=== PATIENT | female | born 1950 | race Caucasian/White ===

== ENCOUNTER 2020-09-13 08:00 | Outpatient (REF) | payer MEDICARE, SELFPAY ==
[2020-09-13 11:50] LABS: Alanine Aminotransferase 46 U/L (0-31); Albumin Level 4.6 g/dL (3.5-5.0); Alkaline Phosphatase 63 U/L (39-117); Anion Gap 11 (12-20); Aspartate Amino Transferase 30 U/L (5-31); Bilirubin Total 0.7 mg/dL (0.0-1.0); Blood Urea Nitrogen 13 mg/dL (9-16); Calcium 9.4 mg/dL (8.4-10.2); Carbon Dioxide 31 mmol/L (22-29); Chloride 101 mmol/L (96-108); Cholesterol 208 mg/dL; Estimated Glomerular Filt Rate > 60; Glucose Fasting 100 mg/dL (60-99); HDL Cholesterol 57 mg/dL; LDL Cholesterol Calculated 111 mg/dl; Potassium 4.1 mmol/l (3.3-5.1); Sodium 139 mmol/L (135-145); Total Protein 7.2 g/dL (6.5-8.0); Triglycerides 202 mg/dL
== END 2020-09-13 08:01 | disposition home or self-care (01) ==
LOC: HO.HMGCLDS 08:00
PROVIDERS: PCP Internal Medicine; Visit Provider Nurse Practitioner
DX: E78.5 Hyperlipidemia, unspecified (principal)
CPT/HCPCS: 36415; 80053; 80061

== ENCOUNTER 2021-06-13 12:50 | Outpatient (REF) | payer MEDICARE, SELFPAY ==
--- NOTE | ~2021-06-13 | US_ITS ---
EXAMINATION: US RETROPERITONEAL LIMITED (RENAL ONLY) CLINICAL INFORMATION: Microscopic hematuria. COMPARISON: Renal ultrasound November [address] of the abdomen and pelvis December 2014 TECHNIQUE: Real-time imaging of the kidneys. FINDINGS: RIGHT KIDNEY: 11.3 x 3.9 x 5.2 cm (SAG x AP x TRV). The kidney is normal in size, contour, and echogenicity. Renal cortical thickness is normal. There is a 2 x 2.8 x 1.6 cm cyst in the midpole. No renal calculi or hydronephrosis. LEFT KIDNEY: 10.3 x 4.2 x 5.0 cm (SAG x AP x TRV). The kidney is normal in size, contour, and echogenicity. Renal cortical thickness is normal. No calculi or focal parenchymal lesions. No hydronephrosis. US/US renal BI IMPRESSION: Right renal cyst otherwise unremarkable exam.
== END 2021-06-13 12:51 | disposition home or self-care (01) ==
LOC: HO.HMGCX 12:50
DX: R31.29 Other microscopic hematuria (principal)
CPT/HCPCS: 76775

== ENCOUNTER → 2021-06-21 08:59 | Outpatient (BNVA) | payer MEDICARE, SELFPAY | DX: N28.1 Cyst of kidney, acquired (principal) | CPT/HCPCS: 99212 ==

== ENCOUNTER 2021-10-07 08:15 | Outpatient (REF) | payer MEDICARE, SELFPAY ==
[2021-10-07 11:12] LABS: MANUAL DIFF FLAG NO
[2021-10-07 11:20] LABS: Basophils Percent Auto 0.6 % (0-2); Eosinophils Absolute Auto 0.1 X10*3/uL (0.0-0.4); Eosinophils Percent Auto 1.5 % (0-4); Hematocrit 42.2 % (37.0-47.0); Hemoglobin 13.7 g/dl (12.0-16.0); Lymphocytes Absolute Auto 1.8 X10*3/uL (1.2-4.9); Lymphocytes Percent Auto 38.3 % (20-40); Mean Corpuscular HGB Conc 32.5 g/dl (31.0-35.0); Mean Corpuscular Hemoglobin 29.8 pg (27.0-33.0); Mean Corpuscular Volume 91.7 fL (80.0-98.0); Mean Platelet Volume 10.9 fL (9.4-12.3); Monocytes Absolute Auto 0.4 X10*3/uL (0.1-1.2); Monocytes Percent Auto 7.7 % (2-11); Neutrophils Absolute Auto 2.5 x10*3/uL (2.0-8.3); Neutrophils Percent Auto 51.9 % (45-73); Platelet Count 216 X10*3/uL (160-400); Red Cell Distribution Width 12.5 % (11.0-16.0); White Blood Count 4.8 X10*3/uL (4.8-10.8)
[2021-10-07 11:46] LABS: Alanine Aminotransferase 49 U/L (0-31); Albumin Level 4.3 g/dL (3.5-5.0); Alkaline Phosphatase 53 U/L (39-117); Anion Gap 13 (12-20); Aspartate Amino Transferase 36 U/L (5-31); Bilirubin Total 0.5 mg/dL (0.0-1.0); Blood Urea Nitrogen 17 mg/dL (9-16); Calcium 9.6 mg/dL (8.4-10.2); Carbon Dioxide 28 mmol/L (22-29); Chloride 106 mmol/L (96-108); Cholesterol 181 mg/dL; Estimated Glomerular Filt Rate > 60; Glucose Random 99 mg/dL (60-115); HDL Cholesterol 45 mg/dL; LDL Cholesterol Calculated 101 mg/dl; Sodium 143 mmol/L (135-145); Total Protein 6.9 g/dL (6.5-8.0); Triglycerides 179 mg/dL
== END 2021-10-07 08:16 | disposition home or self-care (01) ==
LOC: HO.HMGCLDS 08:15
PROVIDERS: Visit Provider Internal Medicine
DX: I10 Essential (primary) hypertension (principal); E78.5 Hyperlipidemia, unspecified
CPT/HCPCS: 36415; 80053; 80061; 85025

== ENCOUNTER → 2022-01-18 13:19 | Outpatient (RCR) | payer MEDICARE, SELFPAY | END | disposition home or self-care (01) | LOC: HO.PTCHIC 07-21 12:54 | PROVIDERS: PCP Internal Medicine; Visit Provider Internal Medicine | DX: M26.611 Adhesions and ankylosis of right temporomandibular joint (principal) | CPT/HCPCS: 97035; 97110; 97140; 97161 ==

== ENCOUNTER 2022-04-28 08:30 | Outpatient (RCR) | payer MEDICARE, SELFPAY ==
[2022-04-13 15:00] VITALS: BP 120/68; PULSE 80; O2SAT 96
== END 2022-05-29 11:55 | disposition home or self-care (01) ==
LOC: HO.PTCHIC 08:30
PROVIDERS: PCP Internal Medicine; Visit Provider Nurse Practitioner
DX: Z86.69 Personal history of other diseases of the nervous system and sense organs (principal)
CPT/HCPCS: 95992; 97110; 97112; 97162

== ENCOUNTER 2022-06-06 13:47 | Outpatient (REF) | payer MEDICARE, SELFPAY ==
--- NOTE | ~2022-06-06 | US_ITS ---
EXAMINATION: US RETROPERITONEAL LIMITED (RENAL ONLY) CLINICAL INFORMATION: Cyst of kidney. COMPARISON: Ultrasound renal 06/13/2021. CT abdomen pelvis 12/24/2014. TECHNIQUE: Real-time imaging of the kidneys. FINDINGS: RIGHT KIDNEY: 11.8 x 4.6 x 4.7 cm (SAG x AP x TRV). The kidney is normal in size, contour, and echogenicity. Renal cortical thickness is normal. No renal calculi or hydronephrosis. Septated cyst at the midpole measures 2.3 x 2.9 x 1.8 cm. No Doppler vascularity. The septation is thin. LEFT KIDNEY: 10.4 x 5.0 x 4.0 cm (SAG x AP x TRV). The kidney is normal in size, contour, and echogenicity. Renal cortical thickness is normal. No calculi or focal parenchymal lesions. No hydronephrosis. Mild fullness of the renal pelvis. US/US renal BI IMPRESSION: Septated cyst at the midpole of the right kidney measures up to 2.9 cm. No Doppler vascularity. This is likely Bosniak 2, requiring no further follow-up..
== END 2022-06-06 13:48 | disposition home or self-care (01) ==
LOC: HO.US 13:47
DX: N28.1 Cyst of kidney, acquired (principal)
CPT/HCPCS: 76775

== ENCOUNTER → 2022-06-26 12:52 | Outpatient (BNVA) | payer MEDICARE, SELFPAY | PROVIDERS: PCP Internal Medicine; Visit Provider Urology | DX: N28.1 Cyst of kidney, acquired (principal); Z87.442 Personal history of urinary calculi | CPT/HCPCS: 99212 ==

== ENCOUNTER 2023-05-15 10:23 | Outpatient (REF) | payer MEDICARE, SELFPAY ==
--- NOTE | ~2023-05-15 | US_ITS ---
EXAMINATION: US RETROPERITONEAL LIMITED (RENAL ONLY) CLINICAL INFORMATION: Cyst of kidney, acquired. COMPARISON: Ultrasound renal bilateral 06/06/2022 and 06/13/2021. CT abdomen and pelvis 12/24/2014. TECHNIQUE: Real-time imaging of the kidneys. FINDINGS: RIGHT KIDNEY: 10.4 x 5.0 x 6.7 cm (SAG x AP x TRV). The kidney is normal in size, contour, and echogenicity. Renal cortical thickness is normal. There is a complex cyst in the midpole measuring 3.2 x 2.4 x 2 cm. This has a focal area of septal thickening or mural nodule. This is increased in size from 2.3 x 2.9 x 1.8 cm. No renal calculi or hydronephrosis. LEFT KIDNEY: 10.2 x 4.6 x 6.0 cm (SAG x AP x TRV). The kidney is normal in size, contour, and echogenicity. Renal cortical thickness is normal. No calculi or focal parenchymal lesions. No hydronephrosis. US/US renal BI IMPRESSION: Interval increase in size in complex right renal cyst with area of focal septal thickening or mural nodule. This is a likely Bosniak type III cyst. Follow-up renal CT or MRI with and without IV contrast recommended..
== END 2023-05-15 10:24 | disposition home or self-care (01) ==
LOC: HO.HMGCX 10:23
PROVIDERS: PCP Internal Medicine; Visit Provider Urology
DX: N28.1 Cyst of kidney, acquired (principal); Z87.442 Personal history of urinary calculi
CPT/HCPCS: 76775

== ENCOUNTER 2023-06-06 13:11 | Outpatient (AMB) | payer MEDICARE, SELFPAY ==
--- NOTE | 2023-06-06 13:12 | A.OFFVIS_ITS ---
Intake Intake Visit Reasons: 1y/US Intake Note: Patient presents today for a follow-up on History of Kidney Stones, US Completed 05/15/2023: Meds- None Allergies to Antibiotic- No Known Allergies Blood Thinner- None Patient Symptoms: None Hot Walker Required: No Accompanied by: Self / Same As Patient Allergies No Known Allergies [No Known Allergies*] Allergy (Verified 06/06/23 13:25) Medication List - Last Reconciled 06/06/23 by Tamar Damon MD atenolol 100 mg PO DAILY pantoprazole 40 mg PO DAILY rosuvastatin 20 mg PO BEDTIME HPI HPI Comments History of Present Illness Details Devika is a 73-year-old female who presents today to the office for a follow-up. 06/06/2023? She is followed today for US. She was last seen by me on 06/26/2022 to FU on history of kidney stones and Bosniak Type II renal cyst. The patient was advised that I will continue to monitor kidneys. She was advised to continue vitamin B6, and continue hydration during that time. I reviewed the renal US results from 05/17/2023 revealed interval increase in size in complex right renal cyst with area of focal septal thickening or mural nodule. This is suggestive of a Bosniak type III cyst. She denies any burning with urination. Patient also denies any other urinary tract infections at this time. I discussed with the patient that the renal US findings noted some changes in the cyst and some nodularity is noted, further evaluation with the CT, MRI recommended by the radiologist. Review of charts: Last visit: 06/26/2022? Devika is? here for one year FU due to h/o kidney stones. She is taking Vit B 6 daily and drinking the recommended water intake. She denies irritative voiding symptoms. I discussed recent renal U/S results 06/07/22- 2.9 septated cyst stable Bosniak type 2. 06/06/2023: Plan:? CT of the abdomen renal mass protocol. Follow-up in 8 weeks to discuss the results. [facility] Medical History (Updated 06/06/23 @ 13:47 by Tamar Damon MD) Hyperlipidemia HTN (hypertension) Renal cyst, acquired (Unknown) Microscopic hematuria Urethral caruncle Diverticulitis large intestine Surgical History (Updated 06/06/23 @ 13:26 by SABAS Ambrocio) No pertinent past surgical history Family History (Updated 06/06/23 @ 13:31 by SABAS Ambrocio) Father No problems noted. Mother No problems noted. Social History (Updated 06/06/23 @ 13:35 by SABAS Ambrocio) Alcohol intake: current Alcohol intake frequency: does not drink Patient Tobacco Use Status: Never used Tobacco Review of Systems Const All systems reviewed & are unremarkable except as noted in HPI and below Reports no additional complaints Eyes Reports no additional complaints ENT Denies neck pain Card Denies leg edema Resp Denies cough GI Denies constipation Reports no additional complaints Musc Reports no additional complaints and Denies neck pain Skin/Breast Denies rash and Denies unusual bruising Neuro Reports no additional complaints Psych Reports no additional complaints Endo Reports no additional complaints Justin/Lymph Reports no additional complaints Aller/Immun Reports no additional complaints Physical Exam Const General: cooperative, healthy appearing and no acute distress Orientation/consciousness: patient oriented x3 HEENT Head: Yes normal to inspection, Yes normocephalic and Yes atraumatic Eyes Conjunctivae: conjunctivae normal Neck Neck: Yes normal visual inspection and Yes trachea midline Chest Chest palpation & inspection: normal inspection of the chest Resp Effort & Inspection: normal respiratory effort Cardio Rate: regular rate Skin General skin exam: no rashes or lesions noted Neuro General: patient oriented x3 Psych Appearance: grossly normal Results AMB Urinalysis, Automated UA Leukoctes 125 Maurisio/uL Last Edit by SABAS Ambrocio on 06/06/23 13:47 2+ Lacho Diop 06/06/23 13:47 UA Nitrite Negative Last Edit by SABAS Ambrocio on 06/06/23 13:47 UA Urobilinogen 0.2 mg/dL Last Edit by SBAAS Ambrocio on 06/06/23 13:4 7 UA Protein 0 mg/dL Last Edit by Lacho Diop A on 06/06/23 13:47 UA pH 6.0 Last Edit by Lacho Diop A on 06/06/23 13:47 UA Blood 0 Jake/uL Last Edit by Lacho Christensenirez, A on 06/06/23 13:47 UA Specific [place] 1.020 Last Edit by Ashlynchadwick Jadon, A on 06/06/23 13: 47 UA Ketone Negative Last Edit by Lacho Jadon, A on 06/06/23 13:47 UA Bilirubin 0 mg/dL Last Edit by Lacho Jadon, A on 06/06/23 13:47 UA Glucose 0 mg/dL Last Edit by Lacho Diop A on 06/06/23 13:47 Results Reviewed Results Reviewed: Laboratory Last Values Urine pH (Auto) 6.0 06/06/23 13:44 Specific [place] (Auto) 1.020 06/06/23 13:44 Urine Protein (Auto) 0 mg/dL 06/06/23 13:44 Glucose (UA)(Auto) 0 mg/dL 06/06/23 13:44 Urine Ketones (Auto) Negative 06/06/23 13:44 Urine Blood (Auto) 0 Jake/uL 06/06/23 13:44 Urine Nitrite (Auto) Negative 06/06/23 13:44 Urine Bilirubin (Auto) 0 mg/dL 06/06/23 13:44 Urine Urobilinogen (Auto) 0.2 mg/dL 06/06/23 13:44 Leukocyte Esterase (Auto) 125 Maurisio/uL 06/06/23 13:44 Date of Service: 05/15/23 EXAMINATION:? US RETROPERITONEAL LIMITED (RENAL ONLY) CLINICAL INFORMATION: Cyst of kidney, acquired. COMPARISON:? Ultrasound renal bilateral 06/06/2022 and 06/13/2021. CT abdomen and pelvis 12/24/2014. FINDINGS: RIGHT KIDNEY: 10.4 x 5.0 x 6.7 cm (SAG x AP x TRV). The kidney is normal in size, contour, and echogenicity. Renal cortical thickness is normal. There is a complex cyst in the midpole measuring 3.2 x 2.4 x 2 cm. This has a focal area of septal thickening or mural nodule. This is increased in size from 2.3 x 2.9 x 1.8 cm. No renal calculi or hydronephrosis. LEFT KIDNEY: 10.2 x 4.6 x 6.0 cm (SAG x AP x TRV). The kidney is normal in size, contour, and echogenicity. Renal cortical thickness is normal. No calculi or focal parenchymal lesions. No hydronephrosis. IMPRESSION:? Interval increase in size in complex right renal cyst with area of focal septal thickening or mural nodule. This is a likely Bosniak type III cyst. Follow-up renal CT or MRI with and without IV contrast recommended. Assessment & Plan Assessment & Plan (1) Complex renal cyst: Code(s): N28.1 - Cyst of kidney, acquired (2) History of kidney stones: Code(s): Z87.442 - Personal history of urinary calculi Plan CT of the abdomen renal mass protocol. Follow-up in 8 weeks to discuss the results. Orders: Orders Creatinine Today N28.1 - Cyst of kidney, acquired AMB Urinalysis Automated Today Z13.9 - Encounter for screening, unspecified Blood Urea Nitrogen Today N28.1 - Cyst of kidney, acquired CT abdomen wo/w IV con Today N28.1 - Cyst of kidney, acquired Patient Instructions: The patient had an opportunity to ask questions regarding treatment plan. All questions were answered. Imaging, Laboratory studies and physical exam results were discussed and reviewed in detail. No major barriers to understanding were identified. The patient expressed understanding and agreement with the above treatment plan.? ? ? The patient is aware they should contact our office by phone for worsening of their current condition or the appearance of new symptoms. Compliance is encouraged with any medications and followup testing that is ordered.? ? ? It is a privilege to be allowed the opportunity to participate in the urologic care of your patient. If you have any questions or concerns regarding treatment for the above conditions please do not hesitate to contact me. The office telephone contact is [phone].? ? ? This note is constructed in part using voice recognition software. While every effort has been made to ensure accuracy front end driver errors may have been included.? ? ? Yours sincerely,? ? ? Tamar Damon MD? Coding Level of Care Code Est Pt Level 4 (05988) Diagnoses Complex renal cyst N28.1 History of kidney stones Z87.442
== END 2023-06-06 16:04 | disposition home or self-care (01) ==
PROVIDERS: PCP Internal Medicine; Visit Provider Urology
DX: N28.1 Cyst of kidney, acquired (principal); Z87.442 Personal history of urinary calculi; Z13.9 Encounter for screening, unspecified
CPT/HCPCS: 99214

== ENCOUNTER → 2023-06-06 13:11 | Outpatient (BNVA) | payer MEDICARE, SELFPAY | PROVIDERS: PCP Internal Medicine; Visit Provider Urology ==

== ENCOUNTER 2023-06-06 14:25 | Outpatient (REF) | payer MEDICARE, SELFPAY ==
[2023-06-06 16:19] LABS: Blood Urea Nitrogen 13 mg/dL (9-16); Estimated Glomerular Filt Rate > 60
== END 2023-06-06 14:26 | disposition home or self-care (01) ==
LOC: HO.HMGCLDS 14:25
PROVIDERS: PCP Internal Medicine; Visit Provider Urology
DX: N28.1 Cyst of kidney, acquired (principal); Z87.442 Personal history of urinary calculi
CPT/HCPCS: 36415; 81003; 82565; 84520; 99212

== ENCOUNTER 2023-06-22 10:53 | Outpatient (REF) | payer MEDICARE, SELFPAY ==
--- NOTE | ~2023-06-22 | CT_ITS ---
EXAMINATION: CT ABDOMEN WITHOUT AND WITH CONTRAST CLINICAL INFORMATION: Follow-up renal cyst. COMPARISON: Renal ultrasound 05/15/2023. CT abdomen 01/29/2023. CT abdomen 12/24/2014. TECHNIQUE: Contiguous axial thin section helical images of the abdomen were performed before and after the administration of 85 mL of Omnipaque 350 intravenous contrast. The data set was reformatted in the coronal and sagittal planes and reviewed on an independent workstation. This CT examination was performed using dose optimization techniques as appropriate, variously including the following: *Automated exposure control *Adjustment of mA and/or kV according to patient size (this includes techniques or standardized protocols for targeted exams where dose is matched to indication/reason for exam; i.e. extremities or head) *Use of iterative reconstruction technique DLP: 220 mGy-cm FINDINGS: LUNG BASES: No suspicious lung nodules appear LIVER, GALLBLADDER, AND BILIARY TREE: Fatty liver. No discrete liver mass. No biliary ductal dilatation. Lithiasis without evidence of cholecystitis. PANCREAS: No discrete pancreatic mass. No ductal dilatation. SPLEEN: Normal. ADRENAL GLANDS AND KIDNEYS: No adrenal mass. Symmetric nephrograms. The right kidney measures 11.2 cm. The left kidney measures 10.1 cm. Cortical thickness is normal. Nonobstructing 2 mm calculus in the upper right kidney. Linear calcification in the upper pole right kidney is presumed vascular. There is a bilobed cortical/parapelvic cyst in the lower right kidney measuring 3.1 x 1.7 x 2.4 cm. There is a thin septation which on the coronal imaging appears mildly thickened at its base (versus invagination of normal parenchyma). Otherwise there is no convincing evidence of mural nodularity. This conforms to the recent ultrasound appearance. The appearance is unchanged from the CT from 01/09/2023 when it measured 3.0 x 1.9 x 2.4 cm. BOWEL LOOPS: Visualized small bowel is normal in caliber. Visualized large bowel is normal in caliber. Small periumbilical hernia containing fat. LYMPH NODES: No adenopathy. VASCULAR: Moderate aortic atherosclerosis without aneurysm. BONES: Degenerative changes in the spine. CT/CT abdomen wo/w IV con IMPRESSION: Stable 3.1 x 1.7 x 2.4 cm bilobed cortical/parapelvic cyst in the lower right kidney with a possibly thickened septation (versus invagination of normal parenchyma). If this is truly a thickened septation the cyst would be characterized as Bosniak 2F. This CT documents 6 months of stability compared to CT 01/29/2023. Recommend follow-up in 6 months and then yearly for a total of 4 more years to complete 5 year surveillance. Fleischner guidelines were followed.
[2023-06-22] MEDS: iohexoL 350 MG/ML 100 ML INFUS..BTL IV (11:38)
== END 2023-06-22 10:54 | disposition home or self-care (01) ==
LOC: HO.CT 10:53
PROVIDERS: PCP Internal Medicine; Visit Provider Urology
DX: N28.1 Cyst of kidney, acquired (principal)
CPT/HCPCS: 74170; Q9967

== ENCOUNTER 2023-07-04 13:20 | Outpatient (AMB) | payer MEDICARE, SELFPAY ==
--- NOTE | 2023-07-04 13:35 | A.OFFVIS_ITS ---
Intake Intake Visit Reasons: follow up/CT Intake Note: Patient presents today for a follow-up on CT Results: CT Completed on 06/22 Meds- None Allergies to Antibiotic- No Known Allergies Blood Thinner- None Allergies No Known Allergies [No Known Allergies*] Allergy (Verified 06/06/23 13:25) Medication List - Last Reconciled 07/04/23 by Tamar Damon MD atenolol 100 mg PO DAILY pantoprazole 40 mg PO DAILY rosuvastatin 20 mg PO BEDTIME HPI HPI Comments History of Present Illness Details Ailyn is a 73-year-old female who presents today to the office for a follow-up. 07/04/2023? She is followed today for CT results. She was last seen by me on 06/06/[address] of the abdomen renal mass protocol was ordered, and she was advised to follow-up in 8 weeks to discuss the results at that time. I reviewed CT abdomen results from 06/22/2023 revealed stable 3.1 x 1.7 x 2.4 cm cortical/parapelvic cyst in the lower right kidney with a possibly thickened septation (versus invagination of normal parenchyma). If this is truly a thickened septation the cyst would be characterized as Bosniak 2F. Review of charts: Renal US results from 05/17/2023 revealed interval increase in size in complex right renal cyst with area of focal septal thickening or mural nodule. This is suggestive of a Bosniak type III cyst. Renal U/S results 06/07/22- 2.9 septated cyst stable Bosniak type 2. 07/04/2023: Plan: Renal US in 6 months. [facility] Medical History (Updated 06/06/23 @ 13:47 by Tamar Damon MD) Hyperlipidemia HTN (hypertension) Renal cyst, acquired (Unknown) Microscopic hematuria Urethral caruncle Diverticulitis large intestine Surgical History (Updated 06/06/23 @ 13:26 by SABAS Ambrocio) No pertinent past surgical history Family History (Updated 06/06/23 @ 13:31 by SABAS Ambrocio) Father No problems noted. Mother No problems noted. (Updated 06/06/23 @ 13:35 by SABAS Ambrocio) Alcohol intake: current Alcohol intake frequency: does not drink Patient Tobacco Use Status: Never used Tobacco Review of Systems Const All systems reviewed & are unremarkable except as noted in HPI and below Reports no additional complaints Eyes Reports no additional complaints ENT Denies neck pain Card Denies leg edema Resp Denies cough GI Denies constipation Reports no additional complaints Musc Reports no additional complaints and Denies neck pain Skin/Breast Denies rash and Denies unusual bruising Neuro Reports no additional complaints Psych Reports no additional complaints Endo Reports no additional complaints Justin/Lymph Reports no additional complaints Aller/Immun Reports no additional complaints Results AMB Urinalysis, Automated UA Leukoctes 70 Maurisio/uL Last Edit by SABAS Ambrocio on 07/04/23 13:45 UA Nitrite Negative Last Edit by SABAS Ambrocio on 07/04/23 13:45 UA Urobilinogen 0.2 mg/dL Last Edit by SABAS Ambrocio on 07/04/23 13:4 5 UA Protein 0 mg/dL Last Edit by SABAS Ambrocio on 07/04/23 13:45 UA pH 6.0 Last Edit by SABAS Ambrocio on 07/04/23 13:45 UA Blood 0 Jake/uL Last Edit by SABAS Ambrocio on 07/04/23 13:45 UA Specific [place] 1.025 Last Edit by SABAS Ambrocio on 07/04/23 13: 45 UA Ketone Negative Last Edit by SABAS Ambrocio on 07/04/23 13:45 UA Bilirubin 0 mg/dL Last Edit by SABAS Ambrocio on 07/04/23 13:45 UA Glucose 0 mg/dL Last Edit by SABAS Ambrocio on 07/04/23 13:45 Results Reviewed Results Reviewed: Laboratory Last Values Urine pH (Auto) 6.0 07/04/23 13:41 Specific [place] (Auto) 1.025 07/04/23 13:41 Urine Protein (Auto) 0 mg/dL 07/04/23 13:41 Glucose (UA)(Auto) 0 mg/dL 07/04/23 13:41 Urine Ketones (Auto) Negative 07/04/23 13:41 Urine Blood (Auto) 0 Jake/uL 07/04/23 13:41 Urine Nitrite (Auto) Negative 07/04/23 13:41 Urine Bilirubin (Auto) 0 mg/dL 07/04/23 13:41 Urine Urobilinogen (Auto) 0.2 mg/dL 07/04/23 13:41 Leukocyte Esterase (Auto) 70 Maurisio/uL 07/04/23 13:41 Date of Service: 06/22/23 EXAMINATION: CT ABDOMEN WITHOUT AND WITH CONTRAST CLINICAL INFORMATION: Follow-up renal cyst. COMPARISON: Renal ultrasound 05/15/2023. CT abdomen 01/29/2023. CT abdomen 12/24/2014. FINDINGS: LUNG BASES: No suspicious lung nodules appear LIVER, GALLBLADDER, AND BILIARY TREE: Fatty liver. No discrete liver mass. No biliary ductal dilatation. Lithiasis without evidence of cholecystitis. PANCREAS: No discrete pancreatic mass. No ductal dilatation. SPLEEN: Normal. ADRENAL GLANDS AND KIDNEYS: No adrenal mass. Symmetric nephrograms. The right kidney measures 11.2 cm. The left kidney measures 10.1 cm. Cortical thickness is normal. Nonobstructing 2 mm calculus in the upper right kidney. Linear calcification in the upper pole right kidney is presumed vascular. There is a bilobed cortical/parapelvic cyst in the lower right kidney measuring 3.1 x 1.7 x 2.4 cm. There is a thin septation which on the coronal imaging appears mildly thickened at its base (versus invagination of normal parenchyma). Otherwise there is no convincing evidence of mural nodularity. This conforms to the recent ultrasound appearance. The appearance is unchanged from the CT from 01/09/2023 when it measured 3.0 x 1.9 x 2.4 cm. BOWEL LOOPS: Visualized small bowel is normal in caliber. Visualized large bowel is normal in caliber. Small periumbilical hernia containing fat. LYMPH NODES: No adenopathy. VASCULAR: Moderate aortic atherosclerosis without aneurysm. BONES: Degenerative changes in the spine. IMPRESSION: Stable 3.1 x 1.7 x 2.4 cm bilobed cortical/parapelvic cyst in the lower right kidney with a possibly thickened septation (versus invagination of normal parenchyma). If this is truly a thickened septation the cyst would be characterized as Bosniak 2F. This CT documents 6 months of stability compared to CT 01/29/2023. Recommend follow-up in 6 months and then yearly for a total of 4 more years to complete 5 year surveillance. Assessment & Plan Assessment & Plan (1) Complex renal cyst: Code(s): N28.1 - Cyst of kidney, acquired (2) History of kidney stones: Code(s): Z87.442 - Personal history of urinary calculi Plan Renal US in 6 months. Orders: Orders AMB Urinalysis Automated 07/04/23 Z13.9 - Encounter for screening, unspecified Patient Instructions: The patient had an opportunity to ask questions regarding treatment plan. All questions were answered. Imaging, Laboratory studies and physical exam results were discussed and reviewed in detail. No major barriers to understanding were identified. The patient expressed understanding and agreement with the above treatment plan. The patient is aware they should contact our office by phone for worsening of their current condition or the appearance of new symptoms. Compliance is en couraged with any medications and followup testing that is ordered. It is a privilege to be allowed the opportunity to participate in the urologic care of your patient. If you have any questions or concerns regarding treatment for the above conditions please do not hesitate to contact me. The office telephone contact is [phone]. This note is constructed in part using voice recognition software. While every effort has been made to ensure accuracy base wad operator adjuster errors may have been included. Yours sincerely, Tamar Damon MD Coding Level of Care Code Est Pt Level 3 (12392) Diagnoses Complex renal cyst N28.1 History of kidney stones Z87.442
== END 2023-07-04 13:52 | disposition home or self-care (01) ==
PROVIDERS: PCP Internal Medicine; Visit Provider Urology
DX: N28.1 Cyst of kidney, acquired (principal); Z87.442 Personal history of urinary calculi
CPT/HCPCS: 99213

== ENCOUNTER → 2023-07-04 13:20 | Outpatient (BNVA) | payer MEDICARE, SELFPAY | PROVIDERS: PCP Internal Medicine; Visit Provider Urology | DX: N28.1 Cyst of kidney, acquired (principal); Z87.442 Personal history of urinary calculi | CPT/HCPCS: 81003; 99212 ==

== ENCOUNTER 2024-01-18 13:33 | Outpatient (REF) | payer MEDICARE, SELFPAY ==
[2024-01-18 16:03] LABS: Appearance Urine Clear; Color Urine Yellow; Glucose Urine UA Negative (Negative); Leukocyte Esterase Urine Negative (Negative); Nitrite Urine Negative (Negative); Specific Gravity - Urine <= 1.005 (1.005-1.025); Urine Blood Negative (Negative); Urine Ketones Negative (Negative); Urine Protein Negative (Neg-Trace)
[2024-01-18 16:09] LABS: Bacteria Urine None Seen (None Seen); Hyaline Casts Urine 0-2 /LPF (0-2); RBC Urine 0-2 /HPF (0-2); Squamous Epithelial Cell Urine 0-2 /HPF (0-2); WBC Urine 0-5 /HPF (0-5)
== END 2024-01-18 13:34 | disposition home or self-care (01) ==
LOC: HO.HMGCLDS 13:33
PROVIDERS: PCP Internal Medicine; Visit Provider Urology
DX: Z87.442 Personal history of urinary calculi (principal); R82.90 Unspecified abnormal findings in urine
CPT/HCPCS: 81001; 87086

== ENCOUNTER 2024-01-24 13:57 | Outpatient (REF) | payer MEDICARE, SELFPAY ==
--- NOTE | ~2024-01-24 | US_ITS ---
EXAMINATION: US RETROPERITONEAL LIMITED (RENAL ONLY) CLINICAL INFORMATION: Renal calculi. COMPARISON: CT abdomen dated 06/27/2023; renal ultrasound dated 05/15/2023. TECHNIQUE: Real-time imaging of the kidneys. FINDINGS: RIGHT KIDNEY: 10.7 x 4.6 x 6.4 cm (SAG x AP x TRV). The kidney is normal in size, contour, and echogenicity. Renal cortical thickness is normal. No calculi or focal parenchymal solid lesions. At the interpolar aspect, a 2.7 x 3.1 x 1.7 cm mildly complex cyst with fine septation is seen. This shows no mural nodularity or associated color Doppler flow. On 06/05/2023, this measured 3.2 x 2.4 x 2.0 cm. No hydronephrosis. LEFT KIDNEY: 10.5 x 5.0 x 4.9 cm (SAG x AP x TRV). The kidney is normal in size, contour, and echogenicity. Renal cortical thickness is normal. No calculi or focal parenchymal lesions. No hydronephrosis. US/US renal BI IMPRESSION: There are continued stable ultrasound dimensions from 05/15/2023 of a previously characterized by Hansk 2F cyst of the mid right kidney.
== END 2024-01-24 13:58 | disposition home or self-care (01) ==
LOC: HO.HMGCX 13:57
PROVIDERS: PCP Internal Medicine; Visit Provider Urology
DX: Z87.442 Personal history of urinary calculi (principal)
CPT/HCPCS: 76775

== ENCOUNTER 2024-01-25 09:14 | Outpatient (AMB) | payer MEDICARE, SELFPAY ==
--- NOTE | 2024-01-25 09:19 | A.OFFVIS_ITS ---
Intake Visit Reasons: follow up/US Intake Note: Patient presents today for a follow-up renal US states she had a UTI, finished abx 3 days ago: Meds- Pyridium Allergies to Antibiotic- No Known Allergies Blood Thinner- None Impact Retail Service Merchandiser Required: No Accompanied by: Self / Same As Patient Allergies No Known Allergies [No Known Allergies*] Allergy (Verified 01/25/24 09:23) HPI Comments Details: Ailyn is a 74-year-old female who presents today to the office for a follow- up. She had a renal ultrasound done 01/24/24 to follow Bosiak type 2 F renal cyst, I have reviewed findings with her renal cysts are stable. The patient has history of kidney stones no renal calculi noted. The patient states since her last visit she had UTI symptoms. She was seen by her PCP who placed her on antibiotics. She states her symptoms persisted and needed another course of antibiotics. Today she denies dysuria and irritative voiding have resolved. Urinalysis today is within normal limits. Urine culture 01/18/2024 was no growth. Discussed plan to monitor renal cyst. Follow-up in 1 yr. Revealed of chart: 07/04/2023? She is followed today for CT results. She was last seen by me on 06/06/[address] of the abdomen renal mass protocol was ordered, and she was advised to follow-up in 8 weeks to discuss the results at that time. I reviewed CT abdomen results from 06/22/2023 revealed stable 3.1 x 1.7 x 2.4 cm cortical/parapelvic cyst in the lower right kidney with a possibly thickened septation (versus invagination of normal parenchyma). If this is truly a thickened septation the cyst would be characterized as Bosniak 2F. Renal US results from 05/17/2023 revealed interval increase in size in complex right renal cyst with area of focal septal thickening or mural nodule. This is suggestive of a Bosniak type III cyst. Renal U/S results 06/07/22- 2.9 septated cyst stable Bosniak type 2. [facility] Medical History Hyperlipidemia HTN (hypertension) Renal cyst, acquired (Unknown) Microscopic hematuria Urethral caruncle Diverticulitis large intestine Surgical History No pertinent past surgical history Family History Father No problems noted. Mother No problems noted. Social History Alcohol intake: current Alcohol intake frequency: does not drink Patient Tobacco Use Status: Never used Tobacco Review of Systems Const All systems reviewed & are unremarkable except as noted in HPI and below Reports no additional complaints Eyes Reports no additional complaints ENT Reports no additional complaints Card Reports no additional complaints Resp Reports no additional complaints GI Reports no additional complaints Reports as per HPI Musc Reports no additional complaints Skin/Breast Reports system reviewed and no additional complaints, except as documented Neuro Reports no additional complaints Psych Reports no additional complaints Endo Reports no additional complaints Justin/Lymph Reports no additional complaints Aller/Immun Reports no additional complaints Results AMB Urinalysis, Automated UA Leukoctes 15 Maurisio/uL Last Edit by SABAS Ambrocio on 01/25/24 09:29 UA Nitrite Negative Last Edit by SAABS Ambrocio on 01/25/24 09:29 UA Urobilinogen 0.2 mg/dL Last Edit by SABAS Ambrocio on 01/25/24 09:2 9 UA Protein 0 mg/dL Last Edit by SABAS Ambrocio on 01/25/24 09:29 UA pH 5.0 Last Edit by SABAS Ambrocio on 01/25/24 09:29 UA Blood 0 Jake/uL Last Edit by SABAS Ambrocio on 01/25/24 09:29 UA Specific [place] 1.025 Last Edit by SABAS Ambrocio on 01/25/24 09: 29 UA Ketone Negative Last Edit by SABAS Ambrocio on 01/25/24 09:29 UA Bilirubin 0 mg/dL Last Edit by SABAS Ambrocio on 01/25/24 09:29 UA Glucose 0 mg/dL Last Edit by SABAS Ambrocio on 01/25/24 09:29 Results Reviewed Results Reviewed: Laboratory Last Values Urine pH (Auto) 5.0 01/25/24 09:24 Specific [place] (Auto) 1.025 01/25/24 09:24 Urine Protein (Auto) 0 mg/dL 01/25/24 09:24 Glucose (UA)(Auto) 0 mg/dL 01/25/24 09:24 Urine Ketones (Auto) Negative 01/25/24 09:24 Urine Blood (Auto) 0 Jake/uL 01/25/24 09:24 Urine Nitrite (Auto) Negative 01/25/24 09:24 Urine Bilirubin (Auto) 0 mg/dL 01/25/24 09:24 Urine Urobilinogen (Auto) 0.2 mg/dL 01/25/24 09:24 Leukocyte Esterase (Auto) 15 Maurisio/uL 01/25/24 09:24 Date of Service: 01/24/24 EXAMINATION: US RETROPERITONEAL LIMITED (RENAL ONLY) CLINICAL INFORMATION: Renal calculi. COMPARISON: CT abdomen dated 06/27/2023; renal ultrasound dated 05/15/2023. TECHNIQUE: Real-time imaging of the kidneys. FINDINGS: RIGHT KIDNEY: 10.7 x 4.6 x 6.4 cm (SAG x AP x TRV). The kidney is normal in size, contour, and echogenicity. Renal cortical thickness is normal. No calculi or focal parenchymal solid lesions. At the interpolar aspect, a 2.7 x 3.1 x 1.7 cm mildly complex cyst with fine septation is seen. This shows no mural nodularity or associated color Doppler flow. On 06/05/2023, this measured 3.2 x 2.4 x 2.0 cm. No hydronephrosis. LEFT KIDNEY: 10.5 x 5.0 x 4.9 cm (SAG x AP x TRV). The kidney is normal in size, contour, and echogenicity. Renal cortical thickness is normal. No calculi or focal parenchymal lesions. No hydronephrosis. IMPRESSION: There are continued stable ultrasound dimensions from 05/15/2023 of a previously characterized by Bosniak 2F cyst of the mid right kidney. Date of Service: 06/22/23 EXAMINATION: CT ABDOMEN WITHOUT AND WITH CONTRAST CLINICAL INFORMATION: Follow-up renal cyst. COMPARISON: Renal ultrasound 05/15/2023. CT abdomen 01/29/2023. CT abdomen 12/24/2014. FINDINGS: LUNG BASES: No suspicious lung nodules appear LIVER, GALLBLADDER, AND BILIARY TREE: Fatty liver. No discrete liver mass. No biliary ductal dilatation. Lithiasis without evidence of cholecystitis. PANCREAS: No discrete pancreatic mass. No ductal dilatation. SPLEEN: Normal. ADRENAL GLANDS AND KIDNEYS: No adrenal mass. Symmetric nephrograms. The right kidney measures 11.2 cm. The left kidney measures 10.1 cm. Cortical thickness is normal. Nonobstructing 2 mm calculus in the upper right kidney. Linear calcification in the upper pole right kidney is presumed vascular. There is a bilobed cortical/parapelvic cyst in the lower right kidney measuring 3.1 x 1.7 x 2.4 cm. There is a thin septation which on the coronal imaging appears mildly thickened at its base (versus invagination of normal parenchyma). Otherwise there is no convincing evidence of mural nodularity. This conforms to the recent ultrasound appearance. The appearance is unchanged from the CT from 01/09/2023 when it measured 3.0 x 1.9 x 2.4 cm. BOWEL LOOPS: Visualized small bowel is normal in caliber. Visualized large bowel is normal in caliber. Small periumbilical hernia containing fat. LYMPH NODES: No adenopathy. VASCULAR: Moderate aortic atherosclerosis without aneurysm. BONES: Degenerative changes in the spine. IMPRESSION: Stable 3.1 x 1.7 x 2.4 cm bilobed cortical/parapelvic cyst in the lower right kidney with a possibly thickened septation (versus invagination of normal parenchyma). If this is truly a thickened septation the cyst would be characterized as Bosniak 2F. This CT documents 6 months of stability compared to CT 01/29/2023. Recommend follow-up in 6 months and then yearly for a total of 4 more years to complete 5 year surveillance. Assessment & Plan Assessment & Plan (1) Complex renal cyst: Code(s): N28.1 - Cyst of kidney, acquired Category: Medical (2) History of kidney stones: Code(s): Z87.442 - Personal history of urinary calculi Category: Medical (3) UTI symptoms: Code(s): R39.9 - Unspecified symptoms and signs involving the genitourinary system Category: Medical Plan Renal US in 1 year. Orders: Orders AMB Urinalysis Automated Today Z13.9 - Encounter for screening, unspecified Patient Instructions: The patient had an opportunity to ask questions regarding treatment plan. The patient expressed understanding and agreement with the above treatment plan. The patient is aware they should contact our office by phone for worsening of their current condition or the appearance of new symptoms. Compliance is encouraged with any medications and followup testing that is ordered. It is a privilege to be allowed the opportunity to participate in the urologic care of your patient. If you have any questions or concerns regarding treatment for the above conditions please do not hesitate to contact me. The office telephone contact is [phone]. This note is constructed in part using voice recognition software. While every effort has been made to ensure accuracy economics faculty member errors may have been included. Yours sincerely, Tamar Damon MD Coding Level of Care Code Est Pt Level 4 (52354) Diagnoses Complex renal cyst N28.1 History of kidney stones Z87.442 UTI symptoms R39.9
== END 2024-01-25 10:31 | disposition home or self-care (01) ==
PROVIDERS: PCP Internal Medicine; Visit Provider Urology
DX: N28.1 Cyst of kidney, acquired (principal); Z87.442 Personal history of urinary calculi; R39.9 Unspecified symptoms and signs involving the genitourinary system; Z13.9 Encounter for screening, unspecified
CPT/HCPCS: 99214

== ENCOUNTER → 2024-01-25 09:14 | Outpatient (BNVA) | payer MEDICARE, SELFPAY | PROVIDERS: PCP Internal Medicine; Visit Provider Urology | DX: N28.1 Cyst of kidney, acquired (principal); R39.9 Unspecified symptoms and signs involving the genitourinary system; Z87.442 Personal history of urinary calculi | CPT/HCPCS: 81003; 99212 ==

== ENCOUNTER 2024-01-28 10:59 | Outpatient (REF) | payer MEDICARE, SELFPAY ==
[2024-01-28 13:27] LABS: Appearance Urine Clear; Color Urine Dark Yellow; Glucose Urine UA Negative (Negative); Leukocyte Esterase Urine Trace (Negative); Nitrite Urine Negative (Negative); PH 5.5 (5.0-9.0); Specific Gravity - Urine 1.015 (1.005-1.025); UMIC TRIGGER UA YES; Urine Blood Negative (Negative); Urine Ketones Trace mg/dL (Negative); Urine Protein Negative (Neg-Trace)
[2024-01-28 13:33] LABS: Bacteria Urine None Seen (None Seen); Hyaline Casts Urine 0-2 /LPF (0-2); RBC Urine 0-2 /HPF (0-2); WBC Urine 0-5 /HPF (0-5)
== END 2024-01-28 11:00 | disposition home or self-care (01) ==
LOC: HO.HMGCLDS 10:59
PROVIDERS: PCP Internal Medicine; Visit Provider Urology
DX: R39.9 Unspecified symptoms and signs involving the genitourinary system (principal)
CPT/HCPCS: 81001; 87086

== ENCOUNTER 2024-12-01 12:57 | Outpatient (REF) | payer MEDICARE, SELFPAY | END 2024-12-01 12:58 | disposition home or self-care (01) | LOC: HO.HMGCX 12:57 | PROVIDERS: PCP Internal Medicine; Visit Provider Urology | DX: N28.1 Cyst of kidney, acquired (principal); Z87.442 Personal history of urinary calculi | CPT/HCPCS: 76775 ==

== ENCOUNTER → 2024-12-01 13:01 | Outpatient (BNV) | payer MEDICARE, SELFPAY | PROVIDERS: PCP Internal Medicine; Visit Provider Radiology Diagnostic Radiology | DX: N28.1 Cyst of kidney, acquired (principal) | CPT/HCPCS: 76775 ==

== ENCOUNTER 2025-01-22 09:55 | Outpatient (AMB) | payer MEDICARE, SELFPAY ==
--- NOTE | 2025-01-22 10:02 | MHC.OFFVIS ---
Intake Visit Reasons: 1y/US Intake Note: Patient presents today for a 1 year follow-up/US Renal US:12/05 Urology Meds: Pyridium Allergies to Antibiotic: No Known Allergies Blood Thinner:None Apparel Pattern Maker Required: No Accompanied by: Self / Same As Patient Allergies No Known Allergies [No Known Allergies*] Allergy (Verified 01/22/25 10:07) HPI Comments Details: 01/22/25--Ailyn is a 75-year-old female who presents today to the office for a follow-up complex renal cyst. History of kidney stones and frequent UTIs. She had a renal ultrasound done 12/01/24 to follow Bosiak type 2 F renal cyst, I have reviewed renal ultrasound November 2024 right kidney complex renal cyst is stable 3.4 cm. The patient denies bothersome urinary symptoms. We will continue to monitor. Results: 12/01/24--Mildly complex avascular right renal cyst with internal septation measuring 2.7 x 3.4 x 3.0 cm. 01/25/24--Ailyn is a 74-year-old female who presents today to the office for a follow-up. She had a renal ultrasound done 01/24/24 to follow Bosiak type 2 F renal cyst, I have reviewed findings with her renal cysts are stable. The patient has history of kidney stones no renal calculi noted. The patient states since her last visit she had UTI symptoms. She was seen by her PCP who placed her on antibiotics. She states her symptoms persisted and needed another course of antibiotics. Today she denies dysuria and irritative voiding have resolved. Urinalysis today is within normal limits. Urine culture 01/18/2024 was no growth. Discussed plan to monitor renal cyst. Follow-up in 1 yr. 07/04/2023?She is followed today for CT results. She was last seen by me on 06/06/[address] of the abdomen renal mass protocol was ordered, and she was advised to follow-up in 8 weeks to discuss the results at that time. I reviewed CT abdomen results from 06/22/2023 revealed stable 3.1 x 1.7 x 2.4 cm cortical/parapelvic cyst in the lower right kidney with a possibly thickened septation (versus invagination of normal parenchyma). If this is truly a thickened septation the cyst would be characterized as Bosniak 2F. Renal US results from 05/17/2023 revealed interval increase in size in complex right renal cyst with area of focal septal thickening or mural nodule. This is suggestive of a Bosniak type III cyst. Renal U/S results 06/07/22- 2.9 septated cyst stable Bosniak type 2. [facility] Medical History Hyperlipidemia HTN (hypertension) Renal cyst, acquired (Unknown) Microscopic hematuria Urethral caruncle Diverticulitis large intestine Surgical History No pertinent past surgical history Family History Father No problems noted. Mother No problems noted. Social History Alcohol intake: current Alcohol intake frequency: does not drink Patient Tobacco Use Status: Never used Tobacco Review of Systems Const All systems reviewed & are unremarkable except as noted in HPI and below Reports no additional complaints Eyes Reports no additional complaints ENT Reports no additional complaints Card Reports no additional complaints Resp Reports no additional complaints GI Reports no additional complaints Reports as per HPI Musc Reports no additional complaints Skin/Breast Reports system reviewed and no additional complaints, except as documented Neuro Reports no additional complaints Psych Reports no additional complaints Endo Reports no additional complaints Justin/Lymph Reports no additional complaints Aller/Immun Reports no additional complaints Results Reviewed Results Reviewed: Date of Service: 12/01/24 CLINICAL HISTORY: N28.1 - Cyst of kidney, acquired Ultrasound kidneys. COMPARISON: None Technique: Real time sonographic imaging, including color-flow imaging, was performed by the motorcycle builder. Multiple sales representative leather goods static images were saved for review. FINDINGS: Right kidney: Cortical medullary differentiation is maintained. Normal color flow by Doppler. Mildly complex avascular right renal cyst with internal septation measuring 2.7 x 3.4 x 3.0 cm. No hydronephrosis. Right kidney size: 11.3 x 4.5 x 5.3 cm Left kidney: Cortical medullary differentiation is maintained. Normal color flow by Doppler. No calculus or focal parenchymal abnormality identified. No hydronephrosis. Left kidney size: 11.1 x 4.6 x 5.0 cm IMPRESSION: 1. No evidence of renal obstruction. 2. Complex right renal cyst measuring to 3.4 cm. Date of Service: 01/24/24 EXAMINATION: US RETROPERITONEAL LIMITED (RENAL ONLY) CLINICAL INFORMATION: Renal calculi. COMPARISON: CT abdomen dated 06/27/2023; renal ultrasound dated 05/15/2023. TECHNIQUE: Real-time imaging of the kidneys. FINDINGS: RIGHT KIDNEY: 10.7 x 4.6 x 6.4 cm (SAG x AP x TRV). The kidney is normal in size, contour, and echogenicity. Renal cortical thickness is normal. No calculi or focal parenchymal solid lesions. At the interpolar aspect, a 2.7 x 3.1 x 1.7 cm mildly complex cyst with fine septation is seen. This shows no mural nodularity or associated color Doppler flow. On 06/05/2023, this measured 3.2 x 2.4 x 2.0 cm. No hydronephrosis. LEFT KIDNEY: 10.5 x 5.0 x 4.9 cm (SAG x AP x TRV). The kidney is normal in size, contour, and echogenicity. Renal cortical thickness is normal. No calculi or focal parenchymal lesions. No hydronephrosis. IMPRESSION: There are continued stable ultrasound dimensions from 05/15/2023 of a previously characterized by Collins 2F cyst of the mid right kidney. Date of Service: 06/22/23 EXAMINATION: CT ABDOMEN WITHOUT AND WITH CONTRAST CLINICAL INFORMATION: Follow-up renal cyst. COMPARISON: Renal ultrasound 05/15/2023. CT abdomen 01/29/2023. CT abdomen 12/24/2014. FINDINGS: LUNG BASES: No suspicious lung nodules appear LIVER, GALLBLADDER, AND BILIARY TREE: Fatty liver. No discrete liver mass. No biliary ductal dilatation. Lithiasis without evidence of cholecystitis. PANCREAS: No discrete pancreatic mass. No ductal dilatation. SPLEEN: Normal. ADRENAL GLANDS AND KIDNEYS: No adrenal mass. Symmetric nephrograms. The right kidney measures 11.2 cm. The left kidney measures 10.1 cm. Cortical thickness is normal. Nonobstructing 2 mm calculus in the upper right kidney. Linear calcification in the upper pole right kidney is presumed vascular. There is a bilobed cortical/parapelvic cyst in the lower right kidney measuring 3.1 x 1.7 x 2.4 cm. There is a thin septation which on the coronal imaging appears mildly thickened at its base (versus invagination of normal parenchyma). Otherwise there is no convincing evidence of mural nodularity. This conforms to the recent ultrasound appearance. The appearance is unchanged from the CT from 01/09/2023 when it measured 3.0 x 1.9 x 2.4 cm. BOWEL LOOPS: Visualized small bowel is normal in caliber. Visualized large bowel is normal in caliber. Small periumbilical hernia containing fat. LYMPH NODES: No adenopathy. VASCULAR: Moderate aortic atherosclerosis without aneurysm. BONES: Degenerative changes in the spine. IMPRESSION: Stable 3.1 x 1.7 x 2.4 cm bilobed cortical/parapelvic cyst in the lower right kidney with a possibly thickened septation (versus invagination of normal parenchyma). If this is truly a thickened septation the cyst would be characterized as Bosniak 2F. This CT documents 6 months of stability compared to CT 01/29/2023. Recommend follow-up in 6 months and then yearly for a total of 4 more years to complete 5 year surveillance. Assessment & Plan Assessment & Plan (1) Complex renal cyst: Code(s): N28.1 - Cyst of kidney, acquired Category: Medical (2) History of kidney stones: Code(s): Z87.442 - Personal history of urinary calculi Category: Medical Plan Renal US in 1 year. Medications: Discontinued nitrofurantoin monohyd/m-cryst 100 mg (Macrobid) must administer with a meal/food Discontinued Reason: Patient Completed Course 100 mg PO BID 7 days 14 caps 0RF phenazopyridine (Pyridium) Discontinued Reason: Patient Completed Course 100 mg PO BID 5 days PRN 10 tabs 0RF pain Patient Instructions: The patient had an opportunity to ask questions regarding treatment plan. The patient expressed understanding and agreement with the above treatment plan. The patient is aware they should contact our office by phone for worsening of their current condition or the appearance of new symptoms. Compliance is encouraged with any medications and followup testing that is ordered. It is a privilege to be allowed the opportunity to participate in the urologic care of your patient. If you have any questions or concerns regarding treatment for the above conditions please do not hesitate to contact me. The office telephone contact is [phone]. This note is constructed in part using voice recognition software. While every effort has been made to ensure accuracy dental surgeon errors may have been included. Yours sincerely, Tamar Damon MD Coding Level of Care Code Est Pt Level 3 (14079) Complex EM visit Add On G2211 Diagnoses Complex renal cyst N28.1 History of kidney stones Z87.442
--- OUTSIDE RECORDS SUMMARY | 2025-01-22 10:50 | XMS_ITS | Clinical Summary ---
Author Organization [facility] ity Address [address] [place] [address] Care Team Providers Care Limb Driver Name Role Phone Unavailable Primary Care Provider Unavailabl e Social History Tobacco Use Types Packs/Day Years Used Date Smoking Tobacco: Never Assessed Comments Unknown Sex and Gender Information Value Date Recorded Sex Assigned at Not on file Legal Sex Female 5:16 AM EST Gender Identity Not on file Sexual Orientation Not on file Plan of Treatment Health Maintenance Due Date Last Done Comments DTaP,Tdap,and Td Vaccines (1 - Tdap) 01/10/1967 Pneumococcal Vaccine: 50+ Ye ars (1 of 1 - PCV) 01/10/1998 Zoster Vaccines (1 of 2) 01/10/1998 RSV Immunization Adult Patie nts (1 - 1-dose 75+ series) 01/10/2023 COVID-19 Vaccine ( - 2023-2 5 season) 2024 Influenza Vaccine (Season Ended) 2025 HIB Vaccines Aged Out No longer eligi ble based on patient's age to complete this topic HPV Vaccines Aged Out No longer eligi ble based on patient's age to complete this topic Hepatitis A Vaccines Aged Out No long er eligible based on patient's age to complete this topic Hepatitis B Vaccines Aged Out No long er eligible based on patient's age to complete this topic IPV Vaccines Aged Out No longer eligi ble based on patient's age to complete this topic MMR Vaccines Aged Out No longer eligi ble based on patient's age to complete this topic Meningococcal ACWY Vaccine Aged Out N o longer eligible based on patient's age to complete this topic Meningococcal B Vaccine Aged Out No l onger eligible based on patient's age to complete this topic RSV Immunization Patients Un yulissa 20 months Aged Out No longer eligible b ased on patient's age to complete this topic Varicella Vaccines Aged Out No longer eligible based on patient's age to complete this topic
== END 2025-01-22 10:59 | disposition home or self-care (01) ==
LOC: HO.HUSH 09:55
PROVIDERS: PCP Internal Medicine; Visit Provider Urology
DX: N28.1 Cyst of kidney, acquired (principal); Z87.442 Personal history of urinary calculi; R39.9 Unspecified symptoms and signs involving the genitourinary system
CPT/HCPCS: 99213; G2211

== ENCOUNTER → 2025-01-22 09:55 | Outpatient (BNVA) | payer MEDICARE, SELFPAY | PROVIDERS: PCP Internal Medicine; Visit Provider Urology | DX: N28.1 Cyst of kidney, acquired (principal); Z87.442 Personal history of urinary calculi | CPT/HCPCS: 81003; 99212 ==